=== PATIENT | female | born 1985 | race Caucasian/White ===

== ENCOUNTER → 2017-06-19 | Outpatient (REF) | payer OTHER | LOC: M LAB REF 13:47 | DX: Z12.4 Encounter for screening for malignant neoplasm of cervix (principal) ==

== ENCOUNTER 2019-02-23 11:25 | Emergency (ER) | payer MEDICAID, OTHER ==
[~2019-02-23] VITALS: Ht 160 cm; Wt 62.8 kg
[2019-02-23 11:25] VITALS: BP 135/81
[~2019-02-23 11:25] MED LIST: DOCU10CA PO; IBUP80TA PO; MAPA500T2 PO; MILK120011 PO; VITAPRTA PO
[2019-02-23 11:56] LABS: BASO % 0.6 % (0.0-1.0); EOS # 0.1 10^3/uL (0.0-0.5); EOS % 1.3 % (0.0-3.0); HEMATOCRIT 40.3 % (36.0-47.0); HEMOGLOBIN 13.6 g/dl (12.0-15.5); LYMPH # 1.6 10^3/uL (1.5-5.0); LYMPH % 25.2 % (24.0-44.0); MEAN CORPUSCULAR HEMOGLOBIN 30.4 pg (27.0-33.0); MEAN CORPUSCULAR HGB CONC 33.7 g/dl (32.0-36.5); MONO # 0.7 10^3/uL (0.0-0.8); MONO % 10.4 % (0.0-5.0); NEUTROPHILS # 3.9 10^3/uL (1.5-8.5); NEUTROPHILS % 62.2 % (36.0-66.0); PLATELET COUNT, AUTOMATED 347 10^3/uL (150-450); RED BLOOD COUNT 4.48 10^6/uL (4.00-5.40); WHITE BLOOD COUNT 6.3 10^3/uL (4.0-10.0)
[2019-02-23 12:35] LABS: BLOOD UREA NITROGEN 7 MG/DL (7-18); CARBON DIOXIDE LEVEL 24 MEQ/L (21-32); CHLORIDE LEVEL 110 MEQ/L (98-107); CREATININE FOR GFR 0.58 MG/DL (0.55-1.30); GLOMERULAR FILTRATION RATE > 60.0 (>60); GLUCOSE, FASTING 87 MG/DL (70-100); HCG, SERUM QUANTITATIVE 4786 MIU/ML; POTASSIUM SERUM 4.1 MEQ/L (3.5-5.1); SODIUM LEVEL 140 MEQ/L (136-145)
--- NOTE | 2019-02-23 12:44 | REP ---
First trimester obstetric ultrasound, emergency request because of vaginal bleeding, cramping and pressure. The patient states she has approximately 9 weeks gestational age. The study is performed with transabdominal, endovaginal and Doppler ultrasound assessment. The uterus is anteverted and anteflexed. There is an intrauterine gestational sac with a pole. However, there is no motion or cardiac activity. The The pole crown-rump length is 13.7 mm. This corresponds to a gestational age of 7 weeks 5 days. Right ovary: The right ovary is normal size measuring 2.2 x 1.7 x 1.9 cm. Left ovary: The left ovary is normal size measuring 2.3 x 1.7 x 1.9 cm. There is no dominant mass or cyst in either the right on the left ovaries. There is vascular flow in both ovaries. The Doppler resistive index in the parenchymal arteries of the right ovary is 0.59 left ovary 0.50. There is no free fluid in the pelvis. Impression: There is an intrauterine gestational sac with a pole. There is no motion or cardiac activity. Gestational age by crown-rump length of 7 weeks 5 days. Electronically Signed by Bhavesh Price MD 02/23/2019 12:35 P
== END 2019-02-23 13:17 | disposition home or self-care (01) ==
LOC: M ED 11:25
DX: O02.1 Missed abortion (principal)

== ENCOUNTER → 2019-03-01 | Outpatient (CLI) | payer MEDICAID ==
[2019-03-01 13:57] LABS: HEMATOCRIT 41.4 % (36.0-47.0); HEMOGLOBIN 13.7 g/dl (12.0-15.5); MEAN CORPUSCULAR HEMOGLOBIN 29.9 pg (27.0-33.0); MEAN CORPUSCULAR HGB CONC 33.1 g/dl (32.0-36.5); MEAN CORPUSCULAR VOLUME 90.4 fl (80.0-96.0); PLATELET COUNT, AUTOMATED 350 10^3/uL (150-450); RED BLOOD COUNT 4.58 10^6/uL (4.00-5.40); WHITE BLOOD COUNT 11.1 10^3/uL (4.0-10.0)
== END ==
LOC: M LAB 12:58
PROVIDERS: ATTEND Advanced Practice Midwife
DX: O02.1 Missed abortion (principal)

== ENCOUNTER 2019-06-09 13:35 | Emergency (ER) | payer OTHER ==
[~2019-06-09] VITALS: Ht 160 cm; Wt 61.4 kg
[2019-06-09 14:27] LABS: HEMATOCRIT 42.1 % (36.0-47.0); HEMOGLOBIN 14.4 g/dl (12.0-15.5); MEAN CORPUSCULAR HEMOGLOBIN 30.3 pg (27.0-33.0); MEAN CORPUSCULAR HGB CONC 34.2 g/dl (32.0-36.5); MEAN CORPUSCULAR VOLUME 88.6 fl (80.0-96.0); PLATELET COUNT, AUTOMATED 337 10^3/uL (150-450); RED BLOOD COUNT 4.75 10^6/uL (4.00-5.40); WHITE BLOOD COUNT 7.2 10^3/uL (4.0-10.0)
[2019-06-09] MEDS ORDERED: XULA1DIS TOP (14:31)
[2019-06-09 14:43] LABS: INR 1.01
[2019-06-09 14:44] LABS: PARTIAL THROMBOPLASTIN TIME 27.2 SECONDS (25.0-38.4)
[2019-06-09 14:58] LABS: ALBUMIN 3.9 GM/DL (3.2-5.2); ALT/SGPT 19 U/L (12-78); BILIRUBIN,DIRECT 0.1 MG/DL (0.0-0.2); BILIRUBIN,TOTAL 0.3 MG/DL (0.2-1.0); CK-MB VALUE MASS < 1.0 NG/ML (<3.6); CPK CREATINE PHOSPHOKINASE 63 U/L (26-192); FREE T4 0.98 NG/DL (0.76-1.46); MAGNESIUM LEVEL 2.1 MG/DL (1.8-2.4); MB/CK RELATIVE INDEX 1.59 (< OR =4); THYROID STIMULATING HORMONE 0.894 uIU/ML (0.358-3.740); TOTAL PROTEIN 7.4 GM/DL (6.4-8.2); TROPONIN I < 0.02 NG/ML (< 0.10)
--- NOTE | 2019-06-09 16:31 | REPVR ---
PROCEDURE INFORMATION: Exam: CT Head Without Contrast Exam date and time: 06/09/2019 3:50 PM Age: 33 years old Clinical indication: Syncope and collapse TECHNIQUE: Imaging protocol: Computed tomography of the head without contrast. Axial and coronal reformatted images were created and reviewed. Radiation optimization: All CT scans at this facility use at least one of these dose optimization techniques: automated exposure control; mA and/or kV adjustment per patient size (includes targeted exams where dose is matched to clinical indication); or iterative reconstruction. COMPARISON: No relevant prior studies available. FINDINGS: Brain: No CT evidence of acute intracranial hemorrhage or acute territorial infarction. No significant mass effect or midline shift. Basal cisterns patent. Ventricles: Normal in size and configuration. Bones/joints: No acute osseous abnormality. Sinuses: Grossly unremarkable. Mastoid air cells: Grossly unremarkable. Soft tissues: Grossly unremarkable. IMPRESSION: No CT evidence of acute intracranial pathology. Electronically signed by: Blanco Rhoades On 06/09/2019 16:31:32 PM
[2019-06-09 17:33] VITALS: BP 129/69
--- NOTE | 2019-06-09 21:00 | ECGEPIP ---
[facility] - ED Test Date: 2019-06-09 Pat Name: BOWEN TANG Department: Room: - Gender: Female [employer]: : 1985 Requested By: IVETTE Mota Order Number: [id number] Reading MD: Maria Isabel Sam Measurements Intervals [place] Rate: 109 P: 53 NC: 149 QRS: 49 QRSD: 93 T: 22 QT: 340 QTc: 459 Interpretive Statements SINUS TACHYCARDIA ABNORMAL RHYTHM ECG Electronically Signed on 06-09-2019 21:00:07 EST by aMria Isabel Sam
== END 2019-06-09 17:42 | disposition home or self-care (01) ==
LOC: M ED 13:35
DX: R42 Dizziness and giddiness (principal); F17.210 Nicotine dependence, cigarettes, uncomplicated; Z79.3 Long term (current) use of hormonal contraceptives

== ENCOUNTER 2019-06-12 11:34 | Emergency (ER) | payer OTHER ==
[~2019-06-12] VITALS: Ht 160 cm; Wt 62.3 kg
[2019-06-12 11:34] VITALS: BP 133/87
[~2019-06-12 11:34] MED LIST changes: +XULA1DIS TOP
[2019-06-12] MEDS ORDERED: IBUP-1022 PO (12:16)
== END 2019-06-12 12:37 | disposition home or self-care (01) ==
LOC: M ED 11:34
DX: H92.03 Otalgia, bilateral (principal); L04.9 Acute lymphadenitis, unspecified; Z79.3 Long term (current) use of hormonal contraceptives; F17.210 Nicotine dependence, cigarettes, uncomplicated

== ENCOUNTER → 2019-06-27 | Outpatient (CLI) | payer OTHER ==
[~2019-06-27] MED LIST changes: +IBUP-1022 PO
--- NOTE | 2019-07-01 19:37 | REP ---
Clinical: Syncope and possible transient ischemic attack . Technique: Rick scale and color Doppler evaluation using linear high frequency transducer Findings: Two-dimensional rick scale and color images demonstrate normal arterial lumen with laminar flow and no appreciable narrowing. Color Doppler interrogation demonstrates normal arterial wave patterns and velocities with no significant spectral broadening. Normal flow direction is appreciated in the bilateral vertebral arteries. RIGHT (cm/s) LEFT (cm/s) ICA peak systolic velocity 94.5 99.4 ICA diastolic velocity 40.9 44.4 ECA peak systolic velocity 154.0 93.5 CCA peak systolic velocity 123.0 122.0 ICA/CCA ratio 0.77 0.81 Impression: No hemodynamically significant areas of narrowing or stenosis appreciated. Based on set standards narrowing falls within the normal range. Electronically Signed by Irving Padron MD 07/01/2019 07:29 P
== END ==
LOC: M RAD 17:10
PROVIDERS: ATTEND Psychiatry & Neurology Neurology
DX: R55 Syncope and collapse (principal); R42 Dizziness and giddiness

== ENCOUNTER 2019-09-15 22:14 | Emergency (ER) | payer OTHER ==
[~2019-09-15] VITALS: Ht 160 cm; Wt 62.7 kg
[2019-09-15 22:14] VITALS: BP 122/77
[2019-09-15] MEDS ORDERED: LEXA5TAB13 PO (22:53)
[2019-09-15] MEDS ORDERED: KETO10TAB PO (22:56)
[2019-09-15] MEDS ORDERED: KETOROLAC 60MG 2ML VIAL IM ONE (23:00)
--- NOTE | 2019-09-16 00:59 | REP ---
Clinical: Trauma with right shoulder and right extremity pain . Technique: AP, lateral views of the right humerus. Findings: The osseous structures and joint spaces are intact and normal. There is no evidence for acute fracture or dislocation. Surrounding soft tissues are unremarkable. No subcutaneous emphysema or radiodense foreign body. Impression: No acute fracture or dislocation. Electronically Signed by Irving Padron MD 09/16/2019 12:51 A
--- NOTE | 2019-09-16 01:01 | REP ---
Clinical: Trauma with right shoulder pain . Technique: Internal rotation, external rotation, and Y view right shoulder . Findings: No acute fracture or dislocation. The acromioclavicular and glenohumeral joints are intact. No periarticular calcifications or degenerative changes are appreciated. Sub acromial space is normal. Surrounding soft tissues are unremarkable. Impression: Normal right shoulder radiographs. Electronically Signed by Irving Padron MD 09/16/2019 12:52 A
== END 2019-09-15 23:32 | disposition home or self-care (01) ==
LOC: M ED 22:14
DX: S46.911A Strain of unspecified muscle, fascia and tendon at shoulder and upper arm level, right arm, initial encounter (principal); W01.0XXA Fall on same level from slipping, tripping and stumbling without subsequent striking against object, initial encounter; Y93.9 Activity, unspecified; Y92.009 Unspecified place in unspecified non-institutional (private) residence as the place of occurrence of the external cause; F17.210 Nicotine dependence, cigarettes, uncomplicated
CPT/HCPCS: 73030; 73060; 96372; 99283; J1885

== ENCOUNTER 2020-04-01 13:44 | Emergency (ER) | payer OTHER ==
[~2020-04-01] VITALS: Ht 160 cm; Wt 57.7 kg
[~2020-04-01 13:44] MED LIST changes: +KETO10TAB PO; +LEXA5TAB13 PO
[2020-04-01] MEDS ORDERED: KEFL500C17 PO (16:19)
[2020-04-01] MEDS ORDERED: PYRI1TAB5 PO (16:22)
[2020-04-01 16:34] LABS: HCG, SERUM QUALITATIVE NEGATIVE (NEGATIVE)
[2020-04-01 16:46] VITALS: BP 105/67
== END 2020-04-01 16:48 | disposition home or self-care (01) ==
LOC: M ED 13:44
DX: N39.0 Urinary tract infection, site not specified (principal); Z79.3 Long term (current) use of hormonal contraceptives; F17.210 Nicotine dependence, cigarettes, uncomplicated

== ENCOUNTER 2020-04-13 18:33 | Emergency (ER) | payer OTHER ==
[~2020-04-13] VITALS: Ht 160 cm; Wt 58.8 kg
[~2020-04-13 18:33] MED LIST changes: +KEFL500C17 PO; +PYRI1TAB5 PO
[2020-04-13] MEDS ORDERED: AZO-95TA3 PO (20:24)
[2020-04-13] MEDS ORDERED: NAPROXEN 250 MG TAB PO ONE (20:30)
[2020-04-13] MEDS ORDERED: KETOROLAC 60MG 2ML VIAL IM ONE (20:30)
[2020-04-13 20:55] LABS: BASO # 0.1 10^3/uL (0.0-0.2); BASO % 0.7 % (0.0-1.0); BILIRUBIN, URINE MANUAL OBSCURED (NEGATIVE); EOS # 0.1 10^3/uL (0.0-0.5); EOS % 0.8 % (0.0-3.0); GLUCOSE, URINE (UA) MANUAL OBSCURED mg/dL (NEGATIVE); HEMATOCRIT 40.2 % (36.0-47.0); HEMOGLOBIN 13.4 g/dl (12.0-15.5); KETONE, URINE MANUAL OBSCURED mg/dL (NEGATIVE); LYMPH # 2.2 10^3/uL (1.5-5.0); LYMPH % 20.4 % (24.0-44.0); MEAN CORPUSCULAR HEMOGLOBIN 30.1 pg (27.0-33.0); MEAN CORPUSCULAR HGB CONC 33.3 g/dl (32.0-36.5); MEAN CORPUSCULAR VOLUME 90.3 fl (80.0-96.0); MONO % 9.4 % (0.0-5.0); NEUTROPHILS # 7.4 10^3/uL (1.5-8.5); NEUTROPHILS % 68.2 % (36.0-66.0); PLATELET COUNT, AUTOMATED 371 10^3/uL (150-450); RED BLOOD COUNT 4.45 10^6/uL (4.00-5.40); UROBILINOGEN, URINE MANUAL OBSCURED mg/dl (NORMAL); WHITE BLOOD COUNT 10.8 10^3/uL (4.0-10.0)
[2020-04-13 20:59] LABS: BACTERIA, URINE SMALL AMOUNT; HYALINE CAST, URINE NONE SEEN /lpf (0-1); SQUAMOUS EPITHELIAL CELL URINE LARGE AMOUNT /hpf (SMALL AMT)
[2020-04-13 21:17] LABS: BLOOD UREA NITROGEN 7 MG/DL (7-18); CALCIUM LEVEL 8.7 MG/DL (8.5-10.1); CARBON DIOXIDE LEVEL 26 MEQ/L (21-32); CHLORIDE LEVEL 109 MEQ/L (98-107); CREATININE FOR GFR 0.69 MG/DL (0.55-1.30); GLOMERULAR FILTRATION RATE > 60.0 (>60); GLUCOSE, FASTING 79 MG/DL (70-100); HCG, SERUM QUALITATIVE NEGATIVE (NEGATIVE); POTASSIUM SERUM 3.8 MEQ/L (3.5-5.1); SODIUM LEVEL 140 MEQ/L (136-145)
[2020-04-13 23:24] LABS: CHLAMYDIA DNA AMPLIFICATION NEGATIVE (NEGATIVE); GC DNA AMPLIFICATION NEGATIVE (NEGATIVE)
--- NOTE | 2020-04-13 23:50 | REPVR ---
PROCEDURE INFORMATION: Exam: US Duplex Artery or Vein of the Abdominal and/or Reproductive Organs, Limited Ovaries Exam date and time: 04/13/2020 11:19 PM Age: 34 years old Clinical indication: Pelvic pain; Additional info: Dyspareunia, suprapubic pain TECHNIQUE: Imaging protocol: Real-time duplex ultrasound scan of the arterial or venous flow with vergara scale, color Doppler flow and spectral waveform analysis with image documentation. Limited duplex exam focused on the ovaries. Duplex images required to evaluate for torsion and other vascular conditions. COMPARISON: US PELVIC NON-OB COMPLETE 07/19/2013 3:49 PM FINDINGS: Right adnexa: The color Doppler flow and spectral waveforms within the right ovary are within normal limits, without evidence for right ovarian torsion. Left adnexa: The color Doppler flow and spectral waveforms within the left ovary are within normal limits, without evidence for left ovarian torsion. IMPRESSION: No evidence for ovarian torsion. PROCEDURE INFORMATION: Exam: US Pelvis Complete, Transabdominal and US Pelvis, Transvaginal Exam date and time: 04/13/2020 11:19 PM Age: 34 years old Clinical indication: Pelvic pain; Additional info: Dyspareunia, suprapubic pain TECHNIQUE: Imaging protocol: Real-time transabdominal and transvaginal pelvic ultrasound (complete) with image documentation. Transvaginal imaging was used for better evaluation of the endometrium, adnexa, and/or cervix. COMPARISON: US PELVIC NON-OB COMPLETE 07/19/2013 3:49 PM FINDINGS: Uterus/cervix: The anteverted uterus measures 7.1 cm x 3.5 cm x 4.1 cm. No myometrial mass is noted. The endometrium measures 5 mm in thickness. There is a small calcification in the endometrium. There is a 4 mm nabothian cyst. Right adnexa: The right ovary is normal in appearance. No right ovarian cyst or right adnexal mass is noted. The right ovary measures 2.2 cm x 1.9 cm x 1.9 cm. Left adnexa: The left ovary is normal in appearance. No left ovarian cyst or left adnexal mass is noted. The left ovary measures 1.6 cm x 1.3 cm x 1.7 cm. There are dilated vessels in the left adnexal region. Intraperitoneal space: No free fluid is seen from the images obtained. Urinary bladder: The partially distended urinary bladder is unremarkable. IMPRESSION: Unremarkable ultrasound of the uterus and ovaries. Electronically signed by: Isai Stanley On 04/13/2020 23:50:33 PM
[2020-04-14] MEDS ORDERED: ONDANSETRON 4MG/2ML VIAL IV ONE
[2020-04-14 00:07] VITALS: BP 119/71
== END 2020-04-14 00:30 | disposition home or self-care (01) ==
LOC: M ED 18:33
DX: R10.2 Pelvic and perineal pain (principal); R35.8 Other polyuria; Z79.3 Long term (current) use of hormonal contraceptives
CPT/HCPCS: 76830; 76856; 80048; 81000; 84703; 85025; 87086; 87210; 87661; 93976; 96372; 96374; 99283; J1885; J2405

== ENCOUNTER → 2020-12-14 | Outpatient (REF) | payer OTHER ==
[~2020-12-14] MED LIST changes: +AZO-95TA3 PO
[2020-12-14 17:42] LABS: APPEARANCE, URINE CLOUDY (CLEAR); BACTERIA, URINE AUTO 1+ (NEGATIVE); BILIRUBIN, URINE AUTO NEGATIVE (NEGATIVE); BLOOD, URINE BLOOD 3+ (NEGATIVE); COLOR, URINE AMBER (YELLOW); GLUCOSE, URINE (UA) AUTO NEGATIVE (NEGATIVE); KETONE, URINE AUTO NEGATIVE (NEGATIVE); LEUKOCYTE ESTERASE, URINE AUTO NEGATIVE (NEGATIVE); MUCUS, URINE SMALL (NEGATIVE); NITRITE, URINE AUTO POSITIVE (NEGATIVE); PROTEIN, URINE AUTO 1+ mg/dL (NEGATIVE); RBC, URINE AUTO TNTC /HPF (0-3); SPECIFIC GRAVITY URINE AUTO 1.013 (1.002-1.035); SQUAMOUS EPITHELIAL CELL UR AU 0 /HPF (0-6); WBC, URINE AUTO 5 /HPF (0-3)
== END ==
LOC: M LAB REF 16:08
PROVIDERS: ATTEND Physician Assistant
DX: N39.0 Urinary tract infection, site not specified (principal)

== ENCOUNTER → 2021-06-10 | Outpatient (REF) | payer OTHER | LOC: M PLALAB 07:57 | PROVIDERS: ATTEND Specialist | DX: Z12.4 Encounter for screening for malignant neoplasm of cervix (principal); Z53.9 Procedure and treatment not carried out, unspecified reason ==

== ENCOUNTER → 2022-02-09 | Outpatient (CLI) | payer OTHER | LOC: M RAD 13:47 | PROVIDERS: ATTEND Physician Assistant | DX: M79.672 Pain in left foot (principal) ==

== ENCOUNTER 2022-02-23 23:53 | Inpatient (IN) | payer OTHER ==
[~2022-02-23] VITALS: Ht 160 cm; Wt 75.0 kg
[2022-02-24] MEDS ORDERED: BUPR-71 PO (00:06)
[2022-02-24] MEDS ORDERED: PARO20TA3 PO (00:06)
[2022-02-24] MEDS ORDERED: NS 1,000 ML IV SCH (01:20)
[2022-02-24] MEDS: MORPHINE 2 MG/ML 1ML VIAL IV PRN ×5 (01:56→18:25)
[2022-02-24 01:58] LABS: BASO # 0.1 10^3/uL (0.0-0.2); BASO % 0.4 % (0.0-1.0); EOS # 0.1 10^3/uL (0.0-0.5); EOS % 0.4 % (0.0-3.0); HEMATOCRIT 39.8 % (36.0-47.0); HEMOGLOBIN 13.5 g/dl (12.0-15.5); LYMPH # 1.4 10^3/uL (1.5-5.0); LYMPH % 7.8 % (24.0-44.0); MEAN CORPUSCULAR HEMOGLOBIN 30.3 pg (27.0-33.0); MEAN CORPUSCULAR HGB CONC 33.9 g/dl (32.0-36.5); MEAN CORPUSCULAR VOLUME 89.4 fl (80.0-96.0); MONO # 1.2 10^3/uL (0.0-0.8); MONO % 6.5 % (2.0-8.0); NEUTROPHILS # 15.6 10^3/uL (1.5-8.5); NEUTROPHILS % 84.6 % (36.0-66.0); PLATELET COUNT, AUTOMATED 371 10^3/uL (150-450); RED BLOOD COUNT 4.45 10^6/uL (4.00-5.40); WHITE BLOOD COUNT 18.5 10^3/uL (4.0-10.0)
[2022-02-24 02:10] LABS: INR 0.97; PARTIAL THROMBOPLASTIN TIME 24.2 SECONDS (24.8-34.2)
[2022-02-24 02:30] LABS: RSV AMPLIFICATION NEGATIVE (NEGATIVE)
[2022-02-24 02:53] LABS: BLOOD UREA NITROGEN 12 MG/DL (7-18); CALCIUM LEVEL 8.7 MG/DL (8.5-10.1); CARBON DIOXIDE LEVEL 25 MEQ/L (21-32); CHLORIDE LEVEL 107 MEQ/L (98-107); CREATININE FOR GFR 0.74 MG/DL (0.55-1.30); ETHYL ALCOHOL (ETHANOL) < 0.003 % (0.000-0.010); GLOMERULAR FILTRATION RATE > 60.0 (>60); GLUCOSE, FASTING 115 MG/DL (70-100); POTASSIUM SERUM 3.8 MEQ/L (3.5-5.1); SODIUM LEVEL 138 MEQ/L (136-145)
[2022-02-24] MEDS: diazePAM 10MG/2ML SYRINGE (J3360 PER 5MG) IV PRN ×2 (03:18→03:29)
[2022-02-24] MEDS ORDERED: MORPHINE 2 MG/ML 1ML VIAL IV PRN (03:30)
[2022-02-24] MEDS: NS 1,000 ML IV SCH ×2 (04:36→15:34)
[2022-02-24] MEDS ORDERED: HOME MED LIST COMPLETE! XX SCH (05:30)
[2022-02-24] MEDS ORDERED: buPROPion **SR TABLET** (ZYBAN) 150MG PO SCH (09:00)
[2022-02-24 15:25] VITALS: BP 126/76
[2022-02-24] MEDS: PARoxetine 20MG TABLET PO SCH (20:00)
[2022-02-24] MEDS: buPROPion **SR TABLET** (ZYBAN) 150MG PO SCH (20:00)
[2022-02-24 21:00] VITALS: BP 119/74
[2022-02-24] MEDS: KETOROLAC 30 MG/ML 1ML VIAL IV PRN (23:32)
[2022-02-25] VITALS (9 sets, daily range): BP systolic 103–120; BP diastolic 62–79
[2022-02-25] MEDS: NS 1,000 ML IV SCH ×2 (05:08→19:00)
[2022-02-25] MEDS: ACETAMINOPHEN TAB 650MG DOSE (2X325MG) PO PRN ×2 (05:12→20:51)
[2022-02-25 06:46] LABS: ALBUMIN 3.1 GM/DL (3.2-5.2); ALT/SGPT 23 U/L (12-78); BILIRUBIN,TOTAL 0.4 MG/DL (0.2-1.0); BLOOD UREA NITROGEN 9 MG/DL (7-18); CALCIUM LEVEL 8.2 MG/DL (8.5-10.1); CARBON DIOXIDE LEVEL 26 MEQ/L (21-32); CHLORIDE LEVEL 110 MEQ/L (98-107); CREATININE FOR GFR 0.54 MG/DL (0.55-1.30); GLOMERULAR FILTRATION RATE > 60.0 (>60); GLUCOSE, FASTING 90 MG/DL (70-100); POTASSIUM SERUM 4.1 MEQ/L (3.5-5.1); SODIUM LEVEL 141 MEQ/L (136-145)
[2022-02-25 08:28] LABS: BASO # 0.1 10^3/uL (0.0-0.2); BASO % 0.9 % (0.0-1.0); EOS # 0.2 10^3/uL (0.0-0.5); EOS % 3.8 % (0.0-3.0); HEMATOCRIT 38.8 % (36.0-47.0); HEMOGLOBIN 12.2 g/dl (12.0-15.5); LYMPH # 1.6 10^3/uL (1.5-5.0); LYMPH % 29.3 % (24.0-44.0); MEAN CORPUSCULAR HGB CONC 31.4 g/dl (32.0-36.5); MEAN CORPUSCULAR VOLUME 95.3 fl (80.0-96.0); MONO # 0.6 10^3/uL (0.0-0.8); MONO % 11.3 % (2.0-8.0); NEUTROPHILS % 54.5 % (36.0-66.0); PLATELET COUNT, AUTOMATED 336 10^3/uL (150-450); RED BLOOD COUNT 4.07 10^6/uL (4.00-5.40); WHITE BLOOD COUNT 5.5 10^3/uL (4.0-10.0)
[2022-02-25] MEDS ORDERED: fentaNYL 100 MCG/2 ML INJECTION As Ordered ONE ×2 (13:41→16:58)
[2022-02-25] MEDS ORDERED: MIDAZOLAM INJ 2MG/2ML VIAL (J2250 PER 1MG) As Ordered ONE (13:41)
[2022-02-25] MEDS ORDERED: propofoL 200 MG/20 ML VIAL As Ordered ONE ×2 (13:43→15:14)
[2022-02-25] MEDS ORDERED: LIDOCAINE 2% 100MG/5ML SDV (FOR ANES.) As Ordered ONE (13:43)
[2022-02-25] MEDS ORDERED: ceFAZolin 2 GM/D5W 50 ML IV BAG (J0690 PER 500MG) As Ordered ONE (14:42)
[2022-02-25] MEDS ORDERED: ONDANSETRON 4MG 2ML VIAL As Ordered ONE (14:47)
[2022-02-25] MEDS ORDERED: ACETAMINOPHEN 1000MG 100ML IV BAG As Ordered ONE (14:47)
[2022-02-25] MEDS ORDERED: PHENYLephrine 500MCG 5ML (100MCG/ML) SYRINGE As Ordered ONE (14:47)
[2022-02-25] MEDS ORDERED: KETOROLAC 60MG 2ML VIAL As Ordered ONE (16:40)
[2022-02-25] MEDS ORDERED: ONDANSETRON 4MG 2ML VIAL IV PRN (16:55)
[2022-02-25] MEDS ORDERED: LR 1,000 ML IV SCH (16:55)
[2022-02-25] MEDS ORDERED: fentaNYL 100 MCG/2 ML INJECTION IV PRN (16:55)
[2022-02-25] MEDS: oxyCODONE 5MG TAB PO PRN ×2 (17:21→17:52)
[2022-02-25] MEDS: HYDROMORPHONE HCL 0.5 MG/ 0.5 ML SYRINGE (J1170 PER 1) IV PRN ×4 (17:28→17:43)
[2022-02-25] MEDS: buPROPion **SR TABLET** (ZYBAN) 150MG PO SCH (20:50)
[2022-02-25] MEDS: PARoxetine 20MG TABLET PO SCH (20:50)
[2022-02-25] MEDS: ceFAZolin SOD 2 GM in IV 1 EA IV SCH (22:36)
[2022-02-25] MEDS: KETOROLAC 30 MG/ML 1ML VIAL IV PRN (22:36)
[2022-02-26 02:00] VITALS: BP 113/75
[2022-02-26] MEDS: KETOROLAC 30 MG/ML 1ML VIAL IV PRN ×3 (05:54→22:25)
[2022-02-26 06:00] VITALS: BP 111/74
[2022-02-26] MEDS: ceFAZolin SOD 2 GM in IV 1 EA IV SCH (06:17)
[2022-02-26 06:25] LABS: BASO % 0.5 % (0.0-1.0); EOS # 0.1 10^3/uL (0.0-0.5); EOS % 1.5 % (0.0-3.0); HEMATOCRIT 35.8 % (36.0-47.0); HEMOGLOBIN 11.5 g/dl (12.0-15.5); LYMPH # 0.9 10^3/uL (1.5-5.0); LYMPH % 10.6 % (24.0-44.0); MEAN CORPUSCULAR HGB CONC 32.1 g/dl (32.0-36.5); MEAN CORPUSCULAR VOLUME 93.5 fl (80.0-96.0); MONO # 0.6 10^3/uL (0.0-0.8); MONO % 6.4 % (2.0-8.0); NEUTROPHILS # 7.1 10^3/uL (1.5-8.5); NEUTROPHILS % 80.7 % (36.0-66.0); PLATELET COUNT, AUTOMATED 328 10^3/uL (150-450); RED BLOOD COUNT 3.83 10^6/uL (4.00-5.40); WHITE BLOOD COUNT 8.8 10^3/uL (4.0-10.0)
[2022-02-26 07:01] LABS: ALBUMIN 2.9 GM/DL (3.2-5.2); ALT/SGPT 20 U/L (12-78); BILIRUBIN,TOTAL 0.4 MG/DL (0.2-1.0); BLOOD UREA NITROGEN 6 MG/DL (7-18); CALCIUM LEVEL 7.9 MG/DL (8.5-10.1); CARBON DIOXIDE LEVEL 26 MEQ/L (21-32); CHLORIDE LEVEL 109 MEQ/L (98-107); CREATININE FOR GFR 0.57 MG/DL (0.55-1.30); GLOMERULAR FILTRATION RATE > 60.0 (>60); GLUCOSE, FASTING 96 MG/DL (70-100); MAGNESIUM LEVEL 1.8 MG/DL (1.8-2.4); POTASSIUM SERUM 3.8 MEQ/L (3.5-5.1); SODIUM LEVEL 140 MEQ/L (136-145); TOTAL PROTEIN 5.7 GM/DL (6.4-8.2)
[2022-02-26] MEDS: NS 1,000 ML IV SCH (09:23)
[2022-02-26] MEDS ORDERED: oxyCODONE 5MG TAB PO PRN (09:25)
[2022-02-26 10:00] VITALS: BP 111/86
[2022-02-26] MEDS: ENOXAPARIN 40MG/0.4ML SYRINGE (J1650 PER 10MG) SC SCH (10:18)
[2022-02-26 14:00] VITALS: BP 115/85
[2022-02-26] MEDS: oxyCODONE 5MG TAB PO PRN ×2 (14:28→21:01)
[2022-02-26] MEDS: ACETAMINOPHEN TAB 650MG DOSE (2X325MG) PO PRN (18:31)
[2022-02-26] MEDS: PARoxetine 20MG TABLET PO SCH (21:00)
[2022-02-26] MEDS: buPROPion **SR TABLET** (ZYBAN) 150MG PO SCH (21:00)
[2022-02-27 00:46] VITALS: BP 130/74
[2022-02-27] MEDS: oxyCODONE 5MG TAB PO PRN ×2 (03:29→12:43)
[2022-02-27 06:03] LABS: BASO % 0.4 % (0.0-1.0); EOS # 0.3 10^3/uL (0.0-0.5); HEMATOCRIT 33.9 % (36.0-47.0); HEMOGLOBIN 11.1 g/dl (12.0-15.5); LYMPH # 1.2 10^3/uL (1.5-5.0); MEAN CORPUSCULAR HEMOGLOBIN 30.4 pg (27.0-33.0); MEAN CORPUSCULAR HGB CONC 32.7 g/dl (32.0-36.5); MEAN CORPUSCULAR VOLUME 92.9 fl (80.0-96.0); MONO # 0.7 10^3/uL (0.0-0.8); MONO % 9.7 % (2.0-8.0); NEUTROPHILS # 4.5 10^3/uL (1.5-8.5); NEUTROPHILS % 67.5 % (36.0-66.0); PLATELET COUNT, AUTOMATED 290 10^3/uL (150-450); RED BLOOD COUNT 3.65 10^6/uL (4.00-5.40); WHITE BLOOD COUNT 6.7 10^3/uL (4.0-10.0)
[2022-02-27 06:13] VITALS: BP 98/62
[2022-02-27] MEDS: KETOROLAC 30 MG/ML 1ML VIAL IV PRN (06:18)
[2022-02-27 06:29] LABS: ALBUMIN 2.8 GM/DL (3.2-5.2); ALT/SGPT 18 U/L (12-78); BILIRUBIN,TOTAL 0.3 MG/DL (0.2-1.0); BLOOD UREA NITROGEN 8 MG/DL (7-18); CALCIUM LEVEL 7.9 MG/DL (8.5-10.1); CARBON DIOXIDE LEVEL 28 MEQ/L (21-32); CHLORIDE LEVEL 108 MEQ/L (98-107); CREATININE FOR GFR 0.57 MG/DL (0.55-1.30); GLOMERULAR FILTRATION RATE > 60.0 (>60); GLUCOSE, FASTING 104 MG/DL (70-100); MAGNESIUM LEVEL 2.1 MG/DL (1.8-2.4); POTASSIUM SERUM 3.8 MEQ/L (3.5-5.1); SODIUM LEVEL 138 MEQ/L (136-145); TOTAL PROTEIN 5.6 GM/DL (6.4-8.2)
[2022-02-27] MEDS: ENOXAPARIN 40MG/0.4ML SYRINGE (J1650 PER 10MG) SC SCH (09:30)
[2022-02-27] MEDS ORDERED: ACET1TAB55 PO (11:25)
[2022-02-27] MEDS ORDERED: OXYC-517 PO (11:25)
[2022-02-27] MEDS ORDERED: BAYE325T12 PO (11:30)
== END 2022-02-27 14:33 | disposition home or self-care (01) | DRG 313 ==
LOC: M ED 23:53 → M ED INP 02-24 01:41 → ENRESERV 02-24 14:07 → CANRESERV 02-24 14:07 → ENRESERV 02-24 14:09 → M MSPAV 02-24 15:20 → ENRESERV 02-24 16:03
PROVIDERS: ADMIT Family Medicine; ATTEND Family Medicine
PROC: 0QSJ0ZZ Reposition Right Fibula, Open Approach (ICD-10-PCS; 2022-02-25)
PROC: 0QSG04Z Reposition Right Tibia with Internal Fixation Device, Open Approach (ICD-10-PCS; principal; 2022-02-25 13:00)
DX: S82.851A Displaced trimalleolar fracture of right lower leg, initial encounter for closed fracture (principal); F32.A Depression, unspecified; F17.200 Nicotine dependence, unspecified, uncomplicated; F41.9 Anxiety disorder, unspecified; Y92.009 Unspecified place in unspecified non-institutional (private) residence as the place of occurrence of the external cause; X50.1XXA Overexertion from prolonged static or awkward postures, initial encounter; W18.09XA Striking against other object with subsequent fall, initial encounter; Y99.8 Other external cause status; Y93.89 Activity, other specified

== ENCOUNTER → 2022-03-15 | Outpatient (CLI) | payer OTHER ==
[~2022-03-15] MED LIST changes: +ACET1TAB55 PO; +BAYE325T12 PO; +BUPR-71 PO; +OXYC-517 PO; +PARO20TA3 PO
== END ==
LOC: M SOG 12:59
PROVIDERS: ATTEND Orthopaedic Surgery Hand Surgery
DX: Z48.89 Encounter for other specified surgical aftercare (principal); Z98.890 Other specified postprocedural states

== ENCOUNTER → 2022-03-29 | Outpatient (CLI) | payer OTHER | LOC: M SOG 11:45 | PROVIDERS: ATTEND Orthopaedic Surgery Hand Surgery | DX: S82.871D Displaced pilon fracture of right tibia, subsequent encounter for closed fracture with routine healing (principal) ==

== ENCOUNTER → 2022-04-26 | Outpatient (CLI) | payer OTHER | LOC: M SOG 08:53 | PROVIDERS: ATTEND Orthopaedic Surgery | DX: S82.875D Nondisplaced pilon fracture of left tibia, subsequent encounter for closed fracture with routine healing (principal) ==

== ENCOUNTER 2022-05-16 14:07 | Outpatient (RCR) | payer OTHER | END 2022-05-17 | LOC: M PT 14:07 | PROVIDERS: ATTEND Orthopaedic Surgery | DX: S82.875D Nondisplaced pilon fracture of left tibia, subsequent encounter for closed fracture with routine healing (principal) ==

== ENCOUNTER → 2022-06-07 | Outpatient (CLI) | payer OTHER | LOC: M SOG 08:36 | PROVIDERS: ATTEND Orthopaedic Surgery | DX: S82.871D Displaced pilon fracture of right tibia, subsequent encounter for closed fracture with routine healing (principal) ==

== ENCOUNTER 2022-06-13 09:02 | Outpatient (RCR) | payer OTHER | END 2022-06-14 | LOC: M PT 09:02 | PROVIDERS: ATTEND Orthopaedic Surgery | DX: S82.875D Nondisplaced pilon fracture of left tibia, subsequent encounter for closed fracture with routine healing (principal) ==

== ENCOUNTER → 2022-07-15 | Outpatient (RCR) | payer OTHER | LOC: M PT 06-16 09:07 | PROVIDERS: ATTEND Orthopaedic Surgery | DX: S82.875D Nondisplaced pilon fracture of left tibia, subsequent encounter for closed fracture with routine healing (principal) ==

== ENCOUNTER 2022-07-22 08:59 | Outpatient (RCR) | payer OTHER | END 2022-08-14 | LOC: M PT 08:59 | PROVIDERS: ATTEND Orthopaedic Surgery | DX: S82.875D Nondisplaced pilon fracture of left tibia, subsequent encounter for closed fracture with routine healing (principal) ==

== ENCOUNTER → 2022-11-15 | Outpatient (CLI) | payer OTHER ==
[2022-11-15 12:53] LABS: BASO # 0.1 10^3/uL (0.0-0.2); BASO % 0.9 % (0.0-1.0); EOS # 0.1 10^3/uL (0.0-0.5); EOS % 1.8 % (0.0-3.0); HEMATOCRIT 42.9 % (36.0-47.0); HEMOGLOBIN 14.2 g/dl (12.0-15.5); LYMPH # 2.2 10^3/uL (1.5-5.0); LYMPH % 33.9 % (24.0-44.0); MEAN CORPUSCULAR HEMOGLOBIN 29.9 pg (27.0-33.0); MEAN CORPUSCULAR HGB CONC 33.1 g/dl (32.0-36.5); MEAN CORPUSCULAR VOLUME 90.3 fl (80.0-96.0); MONO # 0.7 10^3/uL (0.0-0.8); MONO % 11.1 % (2.0-8.0); NEUTROPHILS # 3.4 10^3/uL (1.5-8.5); PLATELET COUNT, AUTOMATED 388 10^3/uL (150-450); RED BLOOD COUNT 4.75 10^6/uL (4.00-5.40); WHITE BLOOD COUNT 6.6 10^3/uL (4.0-10.0)
[2022-11-15 13:29] LABS: ALKALINE PHOSPHATASE 119 U/L (46-116); ALT/SGPT 21 U/L (7.0-40); AST/SGOT 10 U/L (<34); BILIRUBIN,TOTAL 0.4 MG/DL (0.3-1.2); BLOOD UREA NITROGEN 8 MG/DL (9-23); CALCIUM LEVEL 9.4 MG/DL (8.5-10.1); CARBON DIOXIDE LEVEL 28 MMOL/L (20-31); CHLORIDE LEVEL 102 MMOL/L (98-107); CREATININE FOR GFR 0.63 MG/DL (0.55-1.30); GLOMERULAR FILTRATION RATE > 60.0 (>60); GLUCOSE, FASTING 85 MG/DL (60-100); POTASSIUM SERUM 4.1 MMOL/L (3.5-5.1); SODIUM LEVEL 139 MMOL/L (136-145); TOTAL PROTEIN 7.1 G/DL (5.7-8.2)
[2022-11-15 13:31] LABS: THYROID STIMULATING HORMONE 1.752 uIU/ML (0.55-4.78)
== END ==
LOC: M LAB 12:25
PROVIDERS: ATTEND Physician Assistant
DX: F41.9 Anxiety disorder, unspecified (principal); R00.0 Tachycardia, unspecified; F33.1 Major depressive disorder, recurrent, moderate

== ENCOUNTER → 2024-01-26 | Outpatient (CLI) | payer OTHER ==
[2024-01-26 13:30] LABS: HEMATOCRIT 45.5 % (36.0-47.0); HEMOGLOBIN 15.1 g/dl (12.0-15.5); MEAN CORPUSCULAR HEMOGLOBIN 30.2 pg (27.0-33.0); MEAN CORPUSCULAR HGB CONC 33.2 g/dl (32.0-36.5); PLATELET COUNT, AUTOMATED 370 10^3/uL (150-450)
[2024-01-26 13:58] LABS: ALBUMIN 3.8 G/DL (3.2-5.2); ALKALINE PHOSPHATASE 103 U/L (46-116); ALT/SGPT 29 U/L (7.0-40); AST/SGOT 13 U/L (<34); BILIRUBIN,TOTAL 0.4 MG/DL (0.3-1.2); BLOOD UREA NITROGEN 12 MG/DL (9-23); CALCIUM LEVEL 9.4 MG/DL (8.5-10.1); CARBON DIOXIDE LEVEL 28 MMOL/L (20-31); CHLORIDE LEVEL 108 MMOL/L (98-107); CHOLESTEROL LEVEL 183 MG/DL (<200); CHOLESTEROL RISK RATIO 2.25 (<5); CREATININE FOR GFR 0.65 MG/DL (0.55-1.30); GLOMERULAR FILTRATION RATE > 60.0 (>60); GLUCOSE, FASTING 80 MG/DL (60-100); HDL CHOLESTEROL 81.1 MG/DL (>40); LDL CHOLESTEROL 87.7 MG/DL (<100); NON-HDL-C 101.9 MG/DL; POTASSIUM SERUM 4.8 MMOL/L (3.5-5.1); SODIUM LEVEL 138 MMOL/L (136-145); TOTAL PROTEIN 7.3 G/DL (5.7-8.2); TRIGLYCERIDES LEVEL 71 MG/DL (<150)
[2024-01-26 13:59] LABS: THYROID STIMULATING HORMONE 1.802 uIU/ML (0.55-4.78)
== END ==
LOC: M LAB 11:33
PROVIDERS: ATTEND Physician Assistant
DX: R00.0 Tachycardia, unspecified (principal); E66.9 Obesity, unspecified; F41.9 Anxiety disorder, unspecified; F33.1 Major depressive disorder, recurrent, moderate